=== PATIENT | female | born 1950 | race Two or more races ===

== ENCOUNTER → 2022-10-04 | Day surgery (SDC) | payer MEDICARE, BC ==
[2022-09-30 14:12] LABS: BASOPHILS % 0.2 % (0.0-1.0); EOSINOPHILS # (AUTO) 0.3 (0.0-0.4); EOSINOPHILS % 3.8 % (0.0-6.0); HEMATOCRIT 41.1 % (34.2-44.1); HEMOGLOBIN 12.8 g/dL (12.0-16.0); LYMPHOCYTES # (AUTO) 2.4 (1.0-3.2); LYMPHOCYTES % 29.6 % (18.0-39.1); MEAN CORPUSCULAR HEMOGLOBIN 28.2 pg (28-32); MEAN CORPUSCULAR HGB CONC 31.1 g/dL (31-35); MEAN CORPUSCULAR VOLUME 90.5 fL (81-99); MONOCYTES # (AUTO) 0.6 (0.2-0.8); MONOCYTES % 7.1 % (4.4-11.3); NEUTROPHILS # (AUTO) 4.8 (2.1-6.9); NEUTROPHILS % 59.1 % (38.7-80.0); PLATELET COUNT 192 x10e3/uL (140-360); RED BLOOD COUNT 4.54 x10e6/uL (3.6-5.1); RED CELL DISTRIBUTION WIDTH 13.3 % (11.7-14.4)
[~2022-10-04] MED LIST: ACETAMINOPHEN-1 EAC4 PO; ACTOS15 MG PO; ATENOLOL50 MG PO; B COMPLEX1 EACH PO; BUPIVACAINE HCL 0.5% INJ 30 ML VIAL INJ ONE; COQ-10100 MG PO; FENTANYL CITRATE/PF 100MCG/2 ML INJ ONE; FOLIC ACID20 MG PO; GLIMEPIRIDE2 MG PO; KRILL OIL500 MG PO; LIDOCAINE HCL 1% LOCAL INJ 20 ML VIAL ONE; LIDOCAINE HCL 2% LOCAL INJ 5 ML SDV VIAL INJ ONE; MUPIROCIN 2% OINT 22 GM TUBE ONE; NIACIN100 MG PO; OMEGA 3 1,0001 EACH PO; POVIDONE IODINE 0.05% 0.05 % ML PO ONE; PROPOFOL IV EMULSION 10 MG/ML 20 ML VIAL ONE; SULF PO; VITAMIN D3250 MCG PEG; XIGDUO XR 10 M1 EAC1 PO; ZETIA10 MG PO
[2022-10-04 09:35] VITALS: BP 149/87
== END | disposition home or self-care (01) ==
LOC: OR 07:24
PROVIDERS: ATTEND Plastic Surgery
DX: M15.1 Heberden's nodes (with arthropathy) (principal); M25.841 Other specified joint disorders, right hand; I10 Essential (primary) hypertension; E11.9 Type 2 diabetes mellitus without complications; Z88.6 Allergy status to analgesic agent; Z01.810 Encounter for preprocedural cardiovascular examination; Z01.812 Encounter for preprocedural laboratory examination; Z79.84 Long term (current) use of oral hypoglycemic drugs; Z79.899 Other long term (current) drug therapy; Z86.73 Personal history of transient ischemic attack (TIA), and cerebral infarction without residual deficits
CPT/HCPCS: 26236; 36415 ×2; 82948; 85025; 88304; 93005; J0690; J2001 ×2; J2704; J3010